=== PATIENT | female | born 1995 | race Caucasian/White ===

== ENCOUNTER 2022-11-13 07:47 | Inpatient (IN) | payer MEDICAID ==
[~2022-11-13] VITALS: Ht 149.9 cm; Wt 87.5 kg
[2022-11-13] MEDS ORDERED: MISOPROSTOL 100MCG TABLET VG PRN (08:30)
[2022-11-13] MEDS ORDERED: NALOXONE HCL 0.4 MG/ML 1ML VIAL IM PRN (08:30)
[2022-11-13] MEDS ORDERED: OXYTOCIN 30 UNITS/500ML NS PMX 500 ML IV SCH ×2 (08:30→23:15)
[2022-11-13] MEDS ORDERED: CARBOPROST TROMETHAMINE 250 MCG/ML AMPUL IM PRN (08:30)
[2022-11-13] MEDS ORDERED: METHYLERGONOVINE MALEATE 0.2 MG/ML IM PRN (08:30)
[2022-11-13] MEDS: LACTATED RINGERS 1,000 ML IV SCH ×2 (08:53→14:39)
[2022-11-13 09:44] LABS: BASOPHILS % 0.6 % (0.0-2.0); EOSINOPHILS % 1.3 % (0.0-5.0); HEMATOCRIT. 30.4 % (36.0-48.0); HEMOGLOBIN. 10.6 g/dL (12.0-16.0); LYMPHOCYTES % 28.6 % (20.0-50.0); MEAN CORPUSCULAR HEMOGLOBIN 30.9 pg (28.0-32.0); MEAN CORPUSCULAR VOLUME 88.7 fL (81.0-99.0); MEAN PLATELET VOLUME 7.4 fl (7.4-10.4); MONOCYTES % 6.3 % (2.0-8.0); NEUTROPHILS % 63.2 % (40.0-76.0); PLATELET 270 x1000/uL (130-400); RED BLOOD CELL COUNT 3.43 mill/uL (4.2-5.4); RED CELL DISTRIBUTION WIDTH 14.1 % (11.6-14.6)
[2022-11-13] MEDS ORDERED: CITRIC ACID/SODIUM CITRATE SOLN 30ML UDC PO NR ×2 (09:45→20:00)
[2022-11-13 09:52] LABS: INR 0.9; PARTIAL THROMBOPLASTIN TIME 24.9 sec (23.4-31.0); PROTHROMBIN TIME 9.8 sec (9.6-11.0)
[2022-11-13 10:04] LABS: CLARITY URINE CLEAR (CLEAR); COLOR URINE YELLOW (YELLOW); KETONES URINE NEGATIVE (NEGATIVE); LEUKOCYTE ESTERASE URINE NEGATIVE (NEGATIVE); NITRITE URINE NEGATIVE (NEGATIVE); OCCULT BLOOD URINE NEGATIVE (NEGATIVE); PROTEIN URINE NEGATIVE (NEGATIVE); SPECIFIC GRAVITY URINE 1.017 (1.005-1.030); UROBILINOGEN URINE 0.2 E.U./dL (0.2-1.0)
[2022-11-13 11:42] LABS: *AMPHETAMINES SCREEN URINE NEGATIVE (NEGATIVE); *BARBITURATES SCREEN URINE NEGATIVE (NEGATIVE); *BENZODIAZEPINES SCREEN URINE NEGATIVE (NEGATIVE); *COCAINE SCREEN URINE NEGATIVE (NEGATIVE); CANNABINOID URINE SCREEN NEGATIVE (NEGATIVE); METHADONE URINE SCREEN NEGATIVE (NEGATIVE); OPIATES URINE SCREEN NEGATIVE (NEGATIVE); PHENCYCLIDINE URINE SCREEN NEGATIVE (NEGATIVE)
[2022-11-13 13:39] LABS: HEPATITIS B SURFACE ANTIGEN NEGATIVE
[2022-11-13] MEDS ORDERED: EPHEDRINE SULFATE 50MG/ML VIAL ONE (13:58)
[2022-11-13] MEDS ORDERED: ONDANSETRON HCL 4MG/2ML INJ ONE ×2 (13:58→14:43)
[2022-11-13] MEDS ORDERED: DIPHENHYDRAMINE 50MG/ML VIAL ONE (13:58)
[2022-11-13] MEDS ORDERED: OXYTOCIN 10 UNITS/ML 1ML ONE ×2 (13:58→21:35)
[2022-11-13] MEDS ORDERED: CEFAZOLIN SODIUM 1000MG/VIAL ONE (13:58)
[2022-11-13] MEDS ORDERED: GLYCOPYRROLATE 0.2 MG/ML 2ML VIAL ONE (20:25)
[2022-11-13] MEDS ORDERED: KETOROLAC 60MG/2ML VIAL IM ONE (20:33)
[2022-11-13] MEDS ORDERED: NALOXONE HCL 0.4 MG/ML 1ML VIAL IV PRN (21:45)
[2022-11-13] MEDS ORDERED: DIPHENHYDRAMINE 50MG/ML VIAL IV PRN (21:45)
[2022-11-13] MEDS ORDERED: KETOROLAC 30MG/ML VIAL IV SCH (22:00)
[2022-11-13] MEDS ORDERED: HYDROCODONE/ACETAMINOPHEN 5/325MG TABLET PO PRN (23:15)
[2022-11-13] MEDS ORDERED: BISACODYL 10MG SUPP PR PRN (23:15)
[2022-11-13] MEDS ORDERED: LANOLIN OINT 7GM TUBE TOP PRN (23:15)
[2022-11-13] MEDS ORDERED: ONDANSETRON HCL 4MG/2ML INJ IV PRN (23:15)
[2022-11-13] MEDS ORDERED: DIPHENHYDRAMINE 25MG CAPSULE PO PRN (23:15)
[2022-11-13] MEDS ORDERED: RHO(D) IMMUNE GLOBULIN 300 MCG/SYR IM PRN (23:15)
[2022-11-13] MEDS ORDERED: DEXT 5%/LACTATED RINGERS 1,000 ML IV SCH (23:15)
[2022-11-14 00:30] VITALS: BP 100/59; PULSE 111; RESP 20; TEMP 98.7; O2SAT 98
[2022-11-14] MEDS: LACTATED RINGERS 1,000 ML IV SCH (01:32)
[2022-11-14 04:00] VITALS: BP 97/42; PULSE 60; RESP 18; TEMP 97.8
[2022-11-14] MEDS: CEFAZOLIN 1000MG PREMIX 50 ML IV SCH ×2 (05:14→13:47)
[2022-11-14] MEDS ORDERED: CEFAZOLIN SODIUM 1000MG/VIAL IV SCH (06:00)
[2022-11-14 08:00] VITALS: O2SAT 96
[2022-11-14 16:00] VITALS: O2SAT 96
[2022-11-14 20:29] VITALS: BP 99/56; PULSE 75; RESP 18; TEMP 98.5
[2022-11-14 20:47] VITALS: O2SAT 99
[2022-11-14] MEDS: HYDROCODONE/ACETAMINOPHEN 5/325MG TABLET PO PRN (21:57)
[2022-11-14] MEDS: DOCUSATE SODIUM 100MG CAPSULE PO SCH (21:58)
[2022-11-14] MEDS: IBUPROFEN 400MG TABLET PO PRN (21:58)
[2022-11-14] MEDS ORDERED: METFORMIN HCL 500MG TABLET PO NR (22:57)
[2022-11-15 02:20] VITALS: BP 97/55; PULSE 72; RESP 18; TEMP 98.1
[2022-11-15 05:55] VITALS: BP 90/57; PULSE 66; RESP 18; TEMP 98.2
[2022-11-15 08:06] LABS: HEMATOCRIT 23.3 % (36.0-48.0); HEMOGLOBIN 8.2 g/dL (12.0-16.0); MEAN CORPUSCULAR HEMOGLOBIN 31.4 pg (28.0-32.0); MEAN CORPUSCULAR VOLUME 89.1 fL (81.0-99.0); PLATELET 225 x1000/uL (130-400); RED BLOOD CELL COUNT 2.61 mill/uL (4.2-5.4); RED CELL DISTRIBUTION WIDTH 14.3 % (11.6-14.6)
[2022-11-15 08:38] LABS: CHLORIDE 109 mEq/L (98-107)
[2022-11-15] MEDS: HYDROCODONE/ACETAMINOPHEN 5/325MG TABLET PO PRN (08:51)
[2022-11-15] MEDS: PRENATAL VIT/FE FUMARATE/FA TABLET PO SCH (08:52)
[2022-11-15 10:00] VITALS: BP 99/61; PULSE 72; RESP 18; TEMP 97.2; O2SAT 98
[2022-11-15] MEDS ORDERED: KETOROLAC 30MG/ML VIAL IM PRN (14:30)
[2022-11-15 20:00] VITALS: BP 116/82; PULSE 80; RESP 18; TEMP 98.2; O2SAT 98
[2022-11-15] MEDS ORDERED: METFORMIN HCL 500MG TABLET PO SCH (21:00)
[2022-11-15] MEDS: IBUPROFEN 400MG TABLET PO PRN (21:43)
[2022-11-15] MEDS: DOCUSATE SODIUM 100MG CAPSULE PO SCH (21:43)
[2022-11-16] MEDS ORDERED: MULT-1116 MT (01:48)
[2022-11-16] MEDS ORDERED: FERR325T6 MT (01:48)
[2022-11-16] MEDS ORDERED: IBUP-2028 PO (01:48)
[2022-11-16] MEDS: IBUPROFEN 400MG TABLET PO PRN (03:57)
[2022-11-16 04:00] VITALS: BP 110/72; PULSE 77; RESP 18; TEMP 98.4
[2022-11-16 08:00] VITALS: BP 113/76; PULSE 76; RESP 18; TEMP 98.6; O2SAT 98
[2022-11-16] MEDS: PRENATAL VIT/FE FUMARATE/FA TABLET PO SCH (09:00)
== END 2022-11-16 12:50 | disposition home or self-care (01) | DRG 540 ==
LOC: OBSVTOIN 07:47 → 8 EST LDRP 07:47 → 8EST 11-14 00:30
PROVIDERS: ADMIT Obstetrics & Gynecology; ATTEND Obstetrics & Gynecology
PROC: 10D00Z1 Extraction of Products of Conception, Low, Open Approach (ICD-10-PCS; principal; 2022-11-13)
DX: O34.211 Maternal care for low transverse scar from previous cesarean delivery (principal); O24.420 Gestational diabetes mellitus in childbirth, diet controlled; D25.9 Leiomyoma of uterus, unspecified; N84.1 Polyp of cervix uteri; O99.284 Endocrine, nutritional and metabolic diseases complicating childbirth; O34.13 Maternal care for benign tumor of corpus uteri, third trimester; E55.9 Vitamin D deficiency, unspecified; O34.43 Maternal care for other abnormalities of cervix, third trimester; O99.02 Anemia complicating childbirth; Z37.0 Single live birth; Z3A.39 39 weeks gestation of pregnancy
CPT/HCPCS: 36415; 80048; 80305; 81003; 82962; 85025; 85027; 86592; 86703; 86762; 86850; 86900; 87340; 88307; J0690; J1200; J1885; J2405; J3490; J7120; J7121; A4315